=== PATIENT | female | born 1960 | race American Indian/Alaskan Native ===

== ENCOUNTER 2021-05-08 23:13 | Observation (INO) | payer SELFPAY ==
--- NOTE | 2021-05-08 23:49 | Emergency Department Report ---
ED Shortness of Breath HPI - General Stated Complaint: TRAC ISSUES/ LAC OF SUPPLIES Time Seen by Provider: 05/08/21 23:20 Source: patient, family, EMS Mode of arrival: Stretcher Limitations: Physical Limitation - History of Present Illness Initial Comments: Chief complaint: trouble with tracheostomy Son Grzegorz Flynn [phone] Son Randy Flynn [phone] HPI: This is a 60-year-old female who is tracheostomy dependent PEG tube dependent sacral decubitus ulcer who presents to the emergency department via EMS. Patient appeared to have respiratory distress once patient was transported from long term facility. Son did not have adequate supplies to suction patient. Patient also needed tube feedings which were not available. Patient has been a [facility]. [facility] according to son's report. Patient most rece ntly treated at [facility]. Son had limited information regarding patient's medical history.Ms. John states that she has mild abdominal pain which began this afternoon. She denies headache, chest pain. Medications per medication review report Clonazepam Potassium bicarbonate citrate Escitalopram Famotidine Gabapentin Lidocaine patch Metoprolol Mycophenolate Quetiapine Renal multivitamin with zinc Scopolamine patch CN IX tablet Amitriptyline Amlodipine Apixaban Thiamine Vitamin C Vitamin D3 Tylenol Complaint: shortness of breath -: Sudden, This evening Severity: moderate Consistency: now resolved Worsens With: nothing Known History Of: other (Tracheostomy dependent, recently discharged today from long term facility) Context: other (Tracheostomy dependent, recently discharged today from long term facility) Treatments Prior to Arrival: oxygen, other (EMS transport) ED Review of Systems ROS: Stated complaint: TRAC ISSUES/ LAC OF SUPPLIES Other details as noted in HPI Comment: All other systems reviewed and negative Constitutional: malaise. denies: chills, fever Respiratory: cough, shortness of breath Cardiovascular: denies: chest pain Gastrointestinal: abdominal pain, constipation. denies: nausea, vomiting ED Past Medical Hx - Past Medical History Previous Medical History?: Yes - Surgical History Past Surgical History?: Yes Additional Surgical History: Tracheostomy, PEG tube - Social History Smoking Status: Former Smoker ED Physical Exam - General Limitations: No Limitations General appearance: alert, in no apparent distress, cachectic, other (Appears chronically ill, frail,) - Head Head exam: Present: atraumatic, normocephalic - Eye Eye exam: Present: normal appearance - ENT ENT exam: Present: mucous membranes moist - Neck Neck exam: Present: normal inspection, other (Tracheostomy in place thick copious yellow sputum) - Respiratory Respiratory exam: Present: rhonchi. Absent: respiratory distress, wheezes, rales, accessory muscle use, decreased breath sounds, prolonged expiratory - Cardiovascular Cardiovascular Exam: Present: regular rate, normal rhythm, normal heart sounds. Absent: systolic murmur, diastolic murmur, rubs, gallop - GI/Abdominal GI/Abdominal exam: Present: soft, normal bowel sounds. Absent: distended, tenderness, guarding, rebound - Extremities Exam Extremities exam: Present: other (Cachectic extremities) - Neurological Exam Neurological exam: Present: alert, oriented X3 - Psychiatric Psychiatric exam: Present: depressed, flat affect - Skin Skin exam: Present: warm, dry, intact, normal color. Absent: rash ED Course Vital Signs 05/08/21 05/08/21 23:30 23:34 Temperature 98.4 F Pulse Rate 74 Respiratory 22 Rate Blood Pressure 119/86 O2 Sat by Pulse 95 Oximetry ED Medical Decision Making - Lab Data Result diagrams: 05/08/21 23:38 05/08/21 23:38 - Radiology Data Radiology results: report reviewed [address] [address] XRay Report Signed Patient: MARIAN JOHN MR#: [id number] : 1960 Acct:[id number] Age/Sex: 60 / F ADM Date: 05/08/21 Loc: ED Attending Dr: Ordering Physician: Khadra Peng MD Date of Service: 05/08/21 Procedure(s): XR chest 1V ap Accession Number(s): [id number] cc: Khadra Peng MD Fluoro Time In Minutes: XR chest 1V ap INDICATION / CLINICAL INFORMATION: dyspnea. COMPARISON: None available. FINDINGS: SUPPORT DEVICES: Tracheostomy device projects within the midtrachea. HEART /PULMONARY VASCULATURE: No significant abnormality. LUNGS / PLEURA: No significant pulmonary or pleural abnormality. No pneumothorax. ADDITIONAL FINDINGS: No significant additional findings. IMPRESSION: 1. No acute findings. Signer Name: Ghazal Smith MD Signed: 05/08/2021 11:53 PM Workstation Name: [id number] Transcribed By: LONI Dictated By: GHAZAL SMITH MD Electronically Authenticated By: GHAZAL SMITH MD Signed Date/Time: 05/08/212352 DD/ 52 TD/TT: - Medical Decision Making 1. Acute on chronic respiratory failure, tracheostomy in: Patient improved with tracheostomy care suctioning provided emergency department. 2. Failure to thrive: Patient will need higher level care that can be provided at home. Admitted for further treatment and evaluation. 3. Constipation CBC chemistry within normal limits chest radiograph unremarkable. Critical care attestation.: If time is entered above; I have spent that time in minutes in the direct care of this critically ill patient, excluding procedure time. ED Disposition Clinical Impression: Acute and chronic respiratory failure, Failure to thrive Disposition: OP ADMIT IP TO THIS HOSP Is pt being admited?: Yes Does the pt Need Aspirin: No Condition: Stable
--- NOTE | 2021-05-08 23:58 | XRay Report ---
XR chest 1V ap INDICATION / CLINICAL INFORMATION: dyspnea. COMPARISON: None available. FINDINGS: SUPPORT DEVICES: Tracheostomy device projects within the midtrachea. HEART /PULMONARY VASCULATURE: No significant abnormality. LUNGS / PLEURA: No significant pulmonary or pleural abnormality. No pneumothorax. ADDITIONAL FINDINGS: No significant additional findings. IMPRESSION: 1. No acute findings. Signer Name: Kevin Smith MD Signed: 05/08/2021 11:53 PM Workstation Name: [id number]
[2021-05-09 00:19] LABS: Basophils % (Auto) 0.5 % (0.0-1.8); Eosinophils # (Auto) 0.1 K/mm3 (0.0-0.4); Eosinophils % (Auto) 1.9 % (0.0-4.3); Hematocrit 32.3 % (30.3-42.9); Hemoglobin 10.6 gm/dl (10.1-14.3); Lymphocytes % (Auto) 26.8 % (13.4-35.0); Mean Corpuscular HGB Conc 33 % (30-34); Mean Corpuscular Volume 89 fl (79-97); Monocytes # (Auto) 0.5 K/mm3 (0.0-0.8); Monocytes % (Auto) 6.2 % (0.0-7.3); Platelet Count 525 K/mm3 (140-440); Red Blood Count 3.62 M/mm3 (3.65-5.03); Red Cell Distribution Width 17.1 % (13.2-15.2)
[2021-05-09 00:25] LABS: Blood Urea Nitrogen 11 mg/dL (7-17); Hemolysis Index 1
[2021-05-09 00:30] LABS: BUN/Creatinine Ratio 28
[2021-05-09] MEDS ORDERED: SODIUM CHLORIDE 0.9% 1000 ML 1,000 ML IV SCH (01:15)
[2021-05-09] MEDS ORDERED: MORPHINE 2 MG/1 ML INJ IV PRN (01:15)
[2021-05-09] MEDS ORDERED: MORPHINE 4 MG/1 ML INJ IV PRN (01:15)
[2021-05-09] MEDS ORDERED: ONDANSETRON 4 MG/2 ML INJ IV PRN (01:15)
[2021-05-09] MEDS ORDERED: ACETAMINOPHEN 325 MG TAB PO PRN (01:15)
[2021-05-09] MEDS ORDERED: MAGNESIUM HYDROXIDE (MOM) ORAL LIQD UDC PO PRN (01:15)
--- NOTE | 2021-05-09 01:30 | History and Physical Report ---
History of Present Illness Date of examination: 05/09/21 Date of admission: 05/09/2021 Chief complaint: Respiratory distress History of present illness: 60-year-old female with known history of tracheostomy dependent and PEG tube dependent and Decubitus ulcer presenting to the emergency room via EMS today for respiratory distress. Patient has been a resident of [address] [place] [address] and [facility] for over 8 months and was discharged home to [facility] without adequate supply for suctioning at home. Patient also needed tube feeding. Most of the history was gotten from the ER staff as patient is a poor historian. She however indicates she has been having some mild abdominal discomfort which started this afternoon. She denies any fever or chills, no nausea vomiting, no diarrhea. Medical records from [place] is still being awaited. Work-up in the emergency room including labs and chest x-ray has been unremarkable. Patient is being admitted for possible placement and evaluation for tube feeding and trach management. Past History Past Medical History: hypertension Past Surgical History: Other (Tracheostomy, PEG tube) Social history: smoking (Former smoker) Medications and Allergies Allergies Allergy/AdvReac Type Severity Reaction Status Date / Time No Known Allergies Allergy Unverified 05/09/21 01:53 Active Meds: Active Medications Acetaminophen (Acetaminophen 325 Mg Tab) 650 mg PO Q4H PRN PRN Reason: Pain MILD(1-3)/Fever >100.5/DUBON Heparin Sodium (Porcine) (Heparin 5,000 Unit/1 Ml Vial) 5,000 unit SUB-Q Q8HR CHRISTOS Sodium Chloride (Nacl 0.9% 1000 Ml) 1,000 mls @ 75 mls/hr IV DIRECT CHRISTOS Magnesium Hydroxide (Magnesium Hydroxide (Mom) Oral Liqd Udc) 30 ml PO Q4H PRN PRN Reason: Constipation Morphine Sulfate (Morphine 2 Mg/1 Ml Inj) 2 mg IV Q4H PRN PRN Reason: Pain, Moderate (4-6) Morphine Sulfate (Morphine 4 Mg/1 Ml Inj) 4 mg IV Q4H PRN PRN Reason: Pain , Severe (7-10) Ondansetron HCl (Ondansetron 4 Mg/2 Ml Inj) 4 mg IV Q8H PRN PRN Reason: Nausea And Vomiting Sodium Chloride (Sodium Chloride 0.9% 10 Ml Flush Syringe) 10 ml IV BID CHRISTOS Sodium Chloride (Sodium Chloride 0.9% 10 Ml Flush Syringe) 10 ml IV PRN PRN PRN Reason: LINE FLUSH Review of Systems Constitutional: no fever, no chills Ears, nose, mouth and throat: no nasal congestion, no sore throat Cardiovascular: no chest pain, no palpitations Respiratory: shortness of breath, no cough Gastrointestinal: no abdominal pain, no nausea, no vomiting Genitourinary Female: no pelvic pain, no flank pain, no dysuria, no hematuria Musculoskeletal: no neck pain, no low back pain Integumentary: no rash, no pruritis Neurological: no syncope, no headaches, no confusion Psychiatric: no anxiety, no depression Endocrine: no polyphagia, no polydipsia, no polyuria, no nocturia Exam - Constitutional Vitals: Temp Pulse Resp BP Pulse Ox 98.4 F 102 H 24 112/79 98 05/08/21 23:34 05/09/21 01:00 05/09/21 01:00 05/09/21 01:00 05/09/21 01:00 General appearance: Present: no acute distress, cachectic - EENT Eyes: Present: PERRL, EOM intact. Absent: scleral icterus ENT: hearing intact, clear oral mucosa, dentition normal, other (Trach in place) - Neck Neck: Present: supple, normal ROM - Respiratory Respiratory effort: normal Respiratory: bilateral: CTA - Cardiovascular Rhythm: regular Heart Sounds: Present: S1 & S2. Absent: gallop, systolic murmur, diastolic murmur, rub, click - Extremities Extremities: no ischemia, pulses intact, pulses symmetrical, No edema, normal temperature, Full ROM Peripheral Pulses: within normal limits - Abdominal General gastrointestinal: Present: soft, non-tender, non-distended, normal bowel sounds, other (PEG tube in place). Absent: mass - Integumentary Integumentary: Present: clear, warm, dry. Absent: rash - Musculoskeletal Musculoskeletal: strength equal bilaterally - Psychiatric Psychiatric: appropriate mood/affect, intact judgment & insight, memory intact, cooperative - Neurologic Neurologic: CNII-XII intact, no focal deficits, moves all extremities Results - Labs CBC & Chem 7: 05/08/21 23:38 05/08/21 23:38 Labs: Abnormal lab results 05/08/21 05/08/21 Range/Units 23:38 23:38 RBC 3.62 L (3.65-5.03) M/mm3 RDW 17.1 H (13.2-15.2) % Plt Count 525 H (140-440) K/mm3 Creatinine 0.4 L (0.6-1.2) mg/dL Assessment and Plan - Patient Problems (1) Acute and chronic respiratory failure Current Visit: No Status: Acute Plan to address problem: Patient is trach dependent Consult placed to pulmonology for evaluation. (2) Failure to thrive Current Visit: No Status: Acute Plan to address problem: Patient has PEG tube in place. Dietary consult placed for evaluation. (3) DVT prophylaxis Current Visit: No Status: Acute Plan to address problem: Patient placed on subcutaneous heparin. (4) Full code status Current Visit: No Status: Acute Plan to address problem: Patient is full code.
[2021-05-09] MEDS ORDERED: HEPARIN 5,000 UNIT/1 ML VIAL SUB-Q SCH (06:00)
[2021-05-09] MEDS ORDERED: SIMPLE SYRUP 15 ML FEEDTUBE PRN ×2 (08:00)
[2021-05-09] MEDS ORDERED: SODIUM BICARBONATE 325 MG TAB FEEDTUBE PRN (08:00)
[2021-05-09] MEDS ORDERED: LIPASE 10,500/PROTEASE 25,000/AMYLASE 43,750 (UNITS) DR CAP FEEDTUBE PRN (08:00)
--- NOTE | 2021-05-09 12:06 | Consultation ---
History of Present Illness Consult date: 05/09/21 Requesting physician: KAT PASTOR Reason for consult: other History of present illness: 60 y/o female, trach, peg dependent presents from home via EMS for respiratory distress. However patient is not in respiratory distress. She did not have adequate supplies for son to take care of her at home nor tube feeds so patient was brought to hospital. She has now been admitted for placement. Past History Past Medical History: hypertension Past Surgical History: Other (Tracheostomy, PEG tube) Social history: smoking (Former smoker) Medications and Allergies Allergies Allergy/AdvReac Type Severity Reaction Status Date / Time No Known Allergies Allergy Unverified 05/09/21 01:53 Active Meds: Active Medications Acetaminophen (Acetaminophen 325 Mg Tab) 650 mg PO Q4H PRN PRN Reason: Pain MILD(1-3)/Fever >100.5/DUBON Lipase/Protease/Amylase (Lipase 10,500/Protease 25,000/Amylase 43,750 (Units) Dr Ball) 1 each FEEDTUBE PRN PRN PRN Reason: For Clogged Feeding Tube Heparin Sodium (Porcine) (Heparin 5,000 Unit/1 Ml Vial) 5,000 unit SUB-Q Q8HR CHRISTOS Last Admin: 05/09/21 06:37 Dose: 5,000 unit Documented by: Sodium Chloride (Nacl 0.9% 1000 Ml) 1,000 mls @ 75 mls/hr IV DIRECT CHRISTOS Magnesium Hydroxide (Magnesium Hydroxide (Mom) Oral Liqd Udc) 30 ml PO Q4H PRN PRN Reason: Constipation Morphine Sulfate (Morphine 2 Mg/1 Ml Inj) 2 mg IV Q4H PRN PRN Reason: Pain, Moderate (4-6) Morphine Sulfate (Morphine 4 Mg/1 Ml Inj) 4 mg IV Q4H PRN PRN Reason: Pain , Severe (7-10) Ondansetron HCl (Ondansetron 4 Mg/2 Ml Inj) 4 mg IV Q8H PRN PRN Reason: Nausea And Vomiting Simple Syrup (Simple Syrup 15 Ml) 15 ml FEEDTUBE PRN PRN PRN Reason: Hypoglycemia Simple Syrup (Simple Syrup 15 Ml) 30 ml FEEDTUBE PRN PRN PRN Reason: Hypoglycemia Sodium Bicarbonate (Sodium Bicarbonate 325 Mg Tab) 325 mg FEEDTUBE PRN PRN PRN Reason: For Clogged Feeding Tube Sodium Chloride (Sodium Chloride 0.9% 10 Ml Flush Syringe) 10 ml IV BID CHRISTOS Sodium Chloride (Sodium Chloride 0.9% 10 Ml Flush Syringe) 10 ml IV PRN PRN PRN Reason: LINE FLUSH Physical Examination Vital signs: Vital Signs Pulse Resp BP Pulse Ox 74 22 119/86 95 05/08/21 23:30 05/08/21 23:30 05/08/21 23:30 05/08/21 23:30 Results - Laboratory Findings CBC and BMP: 05/08/21 23:38 05/08/21 23:38 Abnormal lab findings: Abnormal Labs 05/08/21 05/08/21 23:38 23:38 RBC 3.62 L RDW 17.1 H Plt Count 525 H Creatinine 0.4 L Assessment and Plan Spoke with charge nurse on surge floor and states that patient is going to be discharged back to home today. My concern was where the patient was located in the hospital and that she should be moved to a medical floor. However, if the patient is being discharged, the issues is null and void. I had reached out to the attending physician as well but once I spoke with the charge nurse there, I reached back out to tell them no need for transfer. At this point since patient is being discharge, no indication, need for transfer to medical floor.
--- NOTE | 2021-05-09 12:25 | Discharge Summary ---
Providers - Providers Date of Admission: 05/09/21 01:09 Date of discharge: 05/09/21 Attending physician: TREY GUERRERO 05/09/21 01:15 Consult to Physician [CONS] Routine Comment: Consulting Provider: PREETHI CHAUDHRY Physician Instructions: Reason For Exam: Acute on Chronic Respiratory failure- on Trach 05/09/21 01:22 Consult to Dietitian/Nutrition [CONS] Routine Physician Instructions: Reason For Exam: Reason for Consult: Write/Manage Tube Feeding 05/09/21 05:11 Consult to Case Management [CONS] Routine Services Needed at Discharge: Other Comment:: Evaluate for placement. Primary care physician: BRICK CLEANER Hospitalization Condition: Stable Pertinent studies: CXR Hospital course: 60-year-old female with known history of chronic respiratory failure tracheostomy dependent and PEG tube dependent and Decubitus ulcer presented to the emergency room via EMS with complaint of respiratory distress. But on presentation patient appeared to be stable. Apparently patient has been a resident of [address] [place] [address] and [facility] for over 8 months and was discharged home to son without adequate supply for suctioning at home. Patient also needed tube feeding. Work-up in the emergency room including labs and chest x-ray has been unremarkable. Patient is being admitted for tube feeding and trach management. market risk manager was consulted and all supplies for tube feeding and trach tube was arranged Patient was then discharged home with home health under his son 21/05 supervision Disposition: [id number] HOME UNDER HOME [facility] Final Discharge Diagnosis (Prints w/discharge instructions): --Chronic respiratory failure. --Failure to thrive. --History of CVA. --Chronic debility Time spent for discharge: 34 minutes Core Measure Documentation - Palliative Care Palliative Care/ Comfort Measures: Not Applicable - Core Measures Any of the following diagnoses?: none Exam - Physical Exam Narrative exam: GENERAL: Elderly -[place] female lying on bed appeared to be in no discomfort. HEENT: Normocephalic. Atraumatic. No conjunctival congestion or icterus. Patient has moist mucous membranes. NECK: Supple. Trach in place CHEST/LUNGS: Clear to auscultated bilaterally, breathing nonlabored. No wheezes crackles or rhonchi. HEART/CARDIOVASCULAR: Regular in rate and rhythm. S1 and S2 positive. ABDOMEN: Abdomen is soft, nontender. Patient has normal bowel sounds. PEG tube in place SKIN: There is no rash. Warm and dry. NEURO: Contracted hands, able to follow commands and speak MUSCULOSKELETAL: No joint effusion or tenderness. EXTRIMITY: No edema, no cyanosis or clubbing. PSYCH: Cooperative. - Constitutional Vitals: Temp Pulse Resp BP Pulse Ox 98.8 F 74 18 112/67 100 05/09/21 07:21 05/09/21 07:21 05/09/21 07:21 05/09/21 07:05/09/21 09:13 Plan Activity: fall precautions Weight Bearing Status: Non-Weight Bearing Diet: other (TF diet) Wound: change dressing Additional Instructions: Follow-up with PCP in 1 week. Resume all home medication Follow up with: PRIMARY CARE, [Primary Care Provider] - 7 Days Prescriptions: Ipratropium/Albuterol Sulfate [DUONEB *Not for PRN Use*] 1 ampul IH Q6HR #60 ampul.neb
[2021-05-09 15:35] VITALS: BP 104/65
== END 2021-05-09 16:00 | disposition home health service (06) ==
LOC: ED 23:13 → 3B-SURG 05-09 01:09
PROVIDERS: ADMIT Internal Medicine Geriatric Medicine; ATTEND Internal Medicine
DX: J96.20 Acute and chronic respiratory failure, unspecified whether with hypoxia or hypercapnia (principal); J95.00 Unspecified tracheostomy complication; R62.7 Adult failure to thrive; I10 Essential (primary) hypertension; Z68.22 Body mass index [BMI] 22.0-22.9, adult; Z79.899 Other long term (current) drug therapy; Z98.890 Other specified postprocedural states; Z87.891 Personal history of nicotine dependence
CPT/HCPCS: 36415; 71045; 80048; 83880; 85025; 96372; 99284; G0378; J1644